=== PATIENT | female | born 1995 | race African-American/Black ===

== ENCOUNTER 2023-07-26 17:50 | Inpatient (IN) | payer OTHER ==
[2023-07-26] MEDS ORDERED: LIDOCAINE HCL 1% PRESERVATIVE FREE - 30ML VIAL ONE (18:46)
[2023-07-26] MEDS ORDERED: OXYTOCIN 20 UNITS in 0.9% NS 20 UNIT/1,000 ML INFUS.BAG IV ONE (18:46)
[2023-07-26] MEDS ORDERED: AMPICILLIN SODIUM 2 GM VIAL ONE (18:46)
[2023-07-26] MEDS: ELECTROLYTE-148 SOLN 1,000 ML IV SCH (18:55)
[2023-07-26] MEDS: AMPICILLIN - 2 GM in SODIUM CHLORIDE 100 ML IVPB ONE (19:00)
[2023-07-26 19:09] VITALS: BMI 35.1
[2023-07-26] MEDS ORDERED: BUTORPHANOL TARTRATE 2 MG/ML VIAL ONE (19:13)
[2023-07-26 19:15] LABS: BASO % 0.1 % (0-2.0); EOS % 0.1 % (0-4.5); HEMATOCRIT 34.3 % (32.4-45.2); HEMOGLOBIN 11.1 GM/dL (10.7-15.3); LYMPH % 15.3 % (8-40); MCH 28.7 pg (25.7-33.7); MCHC 32.5 g/dl (32.0-36.0); MEAN CELL VOLUME 88.1 fl (80-96); MEAN PLT VOLUME 8.2 fl (7.5-11.1); MONO % 7.6 % (3.8-10.2); NEUT % 76.9 % (42.8-82.8); PLATELET COUNT 193 10^3/uL (134-434); RBC 3.89 M/mm3 (3.60-5.2); RDW 14.7 % (11.6-15.6); WHITE BLOOD COUNT 12.4 K/mm3 (4.0-10.0)
[2023-07-26] MEDS: PROMETHAZINE HCL 25 MG/1 ML VIAL IVPB ONE (19:20)
[2023-07-26] MEDS: BUTORPHANOL TARTRATE 2 MG/ML VIAL IVPB ONE (19:20)
[2023-07-26 19:24] LABS: INR 1.06 (0.83-1.09); PROTHROMBIN TIME (PATIENT) 12.3 SEC (9.7-13.0)
[2023-07-26 19:27] LABS: ACTIVATED PTT 29.1 SECONDS (25.2-36.5)
[2023-07-26 19:29] LABS: POTASSIUM 3.6 mmol/L (3.5-5.1)
[2023-07-26 19:34] LABS: CREATININE 0.6 mg/dL (0.55-1.3)
[2023-07-26] MEDS ORDERED: OXYTOCIN 30 UNITS in 0.9% NS 30 UNIT/500 ML INFUS.BAG IVPB ONE (20:22)
[2023-07-26] MEDS: OXYTOCIN 30 UNITS in 0.9% NS 30 UNIT/500 ML INFUS.BAG IVPB SCH (20:25)
[2023-07-26 20:57] LABS: HIV INTERPRETATION NEGATIVE (NEGATIVE)
[2023-07-26] MEDS: OXYTOCIN 20 UNITS in 0.9% NS 20 UNIT/1,000 ML INFUS.BAG IV SCH (22:05)
[2023-07-26] MEDS ORDERED: WITCH HAZEL 50% (TUCKS) 40 PAD/JAR PAD TP PRN (22:19)
[2023-07-26] MEDS ORDERED: METHYLERGONOVINE MALEATE 0.2 MG/1 ML AMP IM PRN (22:19)
[2023-07-26] MEDS ORDERED: BISACODYL 10 MG SUPP.RECT RC PRN (22:19)
[2023-07-26] MEDS ORDERED: BENZOCAINE 28 GM HEMORRHOIDAL OINTMENT TP PRN (22:19)
[2023-07-26] MEDS ORDERED: BENZOCAINE 20% 57 GM BOTTLE TP PRN (22:19)
[2023-07-26] MEDS ORDERED: oxyCODONE HCL 5 MG TABLET PO PRN (22:19)
[2023-07-26] MEDS ORDERED: AMPICILLIN - 1 GM in SODIUM CHLORIDE 100 ML IVPB SCH (23:00)
[2023-07-26] MEDS ORDERED: ACETAMINOPHEN 325 MG TABLET (FP) ONE (23:35)
[2023-07-26] MEDS: ACETAMINOPHEN 325 MG TABLET (FP) PO PRN (23:37)
[2023-07-26 23:44] VITALS: RESP 18
[2023-07-27 08:13] LABS: BASO % 0.3 % (0-2.0); HEMATOCRIT 33.2 % (32.4-45.2); HEMOGLOBIN 10.6 GM/dL (10.7-15.3); LYMPH % 10.5 % (8-40); MCH 28.3 pg (25.7-33.7); MCHC 31.8 g/dl (32.0-36.0); MEAN PLT VOLUME 8.5 fl (7.5-11.1); MONO % 7.7 % (3.8-10.2); NEUT % 81.5 % (42.8-82.8); PLATELET COUNT 174 10^3/uL (134-434); RBC 3.73 M/mm3 (3.60-5.2); RDW 14.8 % (11.6-15.6); WHITE BLOOD COUNT 16.8 K/mm3 (4.0-10.0)
[2023-07-27] MEDS: IBUPROFEN 600 MG TABLET (FP) PO PRN (09:30)
[2023-07-27] MEDS: FERROUS SO4 325 MG TABLET (FP) PO SCH (09:30)
[2023-07-27] MEDS: PRENATAL VITAMINS W/ FOLIC ACID TABLET (FP) PO SCH (09:30)
[2023-07-27] MEDS ORDERED: DIPHTH,PERTUSS(ACELL),TET 0.5 ML DISP.SYRIN IM ONE (10:00)
[2023-07-27] MEDS: DIPHTH,PERTUSS(ACELL),TET 0.5 ML DISP.SYRIN IM ONE (13:28)
[2023-07-27] MEDS: SENNOSIDES/DOCUSATE COMBO (SENNA PLUS) TABLET (UD) PO PRN (23:39)
[2023-07-29 09:37] VITALS: BP 103/69; PULSE 81; TEMP 97.9
== END 2023-07-29 15:45 | disposition home or self-care (01) | DRG 807 ==
LOC: JDEL 17:50 → JLDR 18:27 → J3W 07-27 00:40
PROVIDERS: ADMIT Obstetrics & Gynecology; ATTEND Obstetrics & Gynecology
PROC: 10E0XZZ Delivery of Products of Conception, External Approach (ICD-10-PCS; principal; 2023-07-26)
DX: O99.824 Streptococcus B carrier state complicating childbirth (principal); Z37.0 Single live birth; Z3A.38 38 weeks gestation of pregnancy
CPT/HCPCS: 36415; 59025; 80048; 85025; 85610; 85730; 86780; 86850; 86900; 86901; 87389; 90715